=== PATIENT | male | born 2000 | race Caucasian/White ===

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

== ENCOUNTER 2021-06-13 11:13 | Emergency (ER) | payer OTHER ==
[~2021-06-13 11:13] MED LIST changes: +CLEOCIN HCL300 MG PO; +IBUPROFEN800 MG PO; +PROVENTIL HFA 61 INH INH
[2021-06-13] MEDS ORDERED: BACTROBAN OINT22 GM EXT (11:53)
[2021-06-13] MEDS ORDERED: IBUPROFEN600 MG PO (11:53)
== END 2021-06-13 12:10 | disposition home or self-care (01) ==
LOC: ER1 11:13
DX: T22.212A Burn of second degree of left forearm, initial encounter (principal); T31.0 Burns involving less than 10% of body surface; Z23 Encounter for immunization; F17.200 Nicotine dependence, unspecified, uncomplicated; X58.XXXA Exposure to other specified factors, initial encounter
CPT/HCPCS: 90471; 90715; 99283